=== PATIENT | male | born 1985 | race African-American/Black ===

== ENCOUNTER 2018-03-01 20:32 | Emergency (ER) | payer OTHER ==
[2018-03-01 20:50] VITALS: BP 157/92; PULSE 83; RESP 20; TEMP 98.3
--- NOTE | 2018-03-02 00:14 | ED ---
General Adult HPI - General Source: patient Mode of arrival: ambulatory Limitations: no limitations <Niyah Wilde - Last Filed: 03/02/18 00:09> <Charla Mayers - Last Filed: 03/02/18 04:10> - General Chief complaint: Drug Screen Stated complaint: Drug test, [facility] Time Seen by Provider: 03/01/18 21:01 - History of Present Illness Initial comments: 32-year-old male denies past medical history presents today for chief complaint of the urine drug screen and blood alcohol testing. Patient states is at work when he accidentally slowly backed into a wall in his hi-lo. She denies fall or injury to head or any extremity. Patient denies loss of consciousness. Patient denies any symptoms this time. He states he was sent here by his work for urine drug testing and blood alcohol testing. SILVANO 0.155. She does work was notified, patient was not allowed to drive given a call level. Work was contacted who sent a cab for transportation. Case discussed with Dr. Mayers. At this time feel patient is stable for discharge he is not to return to work or operate machinery. Patient verbalized understanding. Patient was discharged in stable condition. Patient denies any recent fever, chills, shortness of breath, chest pain, back pain, abdominal pain, nausea or vomiting, numbness or tingling, dysuria or hematuria, constipation or diarrhea, headaches or visual changes, or any other complaints. (Niyah Wilde) - Related Data Home Medications Medication Instructions Recorded Confirmed No Known Home Medications 03/01/18 03/01/18 Allergies Allergy/AdvReac Type Severity Reaction Status Date / Time No Known Allergies Allergy Verified 03/01/18 20:50 Review of Systems ROS Other: All systems not noted in ROS Statement are negative. Constitutional: Denies: fever, chills, night sweats ENT: Denies: ear pain, throat pain Respiratory: Denies: cough, dyspnea, wheezes, hemoptysis, stridor Cardiovascular: Denies: chest pain, palpitations Endocrine: Denies: fatigue Gastrointestinal: Denies: abdominal pain, nausea, vomiting, diarrhea, constipation Genitourinary: Denies: urgency, dysuria Skin: Denies: rash, lesions Neurological: Denies: headache, weakness, numbness, paresthesias, confusion <Niyah Wilde - Last Filed: 03/02/18 00:09> ROS Other: All systems not noted in ROS Statement are negative. <Adiel Mayerssscharlene Chan - Last Filed: 03/02/18 04:10> ROS Statement: Those systems with pertinent positive or pertinent negative responses have been documented in the HPI. Past Medical History Past Medical History: No Reported History History of Any Multi-Drug Resistant Organisms: None Reported Past Surgical History: No Surgical Hx Reported Past Psychological History: No Psychological Hx Reported Smoking Status: Current every day smoker Past Alcohol Use History: Occasional Past Drug Use History: None Reported <Niyah Wilde - Last Filed: 03/02/18 00:09> General Exam Limitations: no limitations <Niyah Wilde Meeta - Last Filed: 03/02/18 00:09> <Charla Mayers P - Last Filed: 03/02/18 04:10> - General Exam Comments Initial Comments: General: The patient is awake and alert, in no distress, and does not appear acutely ill. Eye: Pupils are equal, round and reactive to light, extra-ocular movements are intact. No nystagmus. There is normal conjunctiva bilaterally. No signs of icterus. Ears, nose, mouth and throat: There are moist mucous membranes and no oral lesions. Neck: The neck is supple, there is no tenderness or JVD. No midline or paravertebral tenderness along the entire length of the spinal column including cervical spine. Cardiovascular: There is a regular rate and rhythm. No murmur, rub or gallop is appreciated. Respiratory: Lungs are clear to auscultation, respirations are non-labored, breath sounds are equal. No wheezes, stridor, rales, or rhonchi. Musculoskeletal: Normal ROM, no tenderness. Strength 5/5. Sensation intact. Pulses equal bilaterally 2+. Neurological: A&O x 3. CN II-XII intact, There are no obvious motor or sensory deficits. Coordination appears grossly intact. Speech is normal. Skin: Skin is warm and dry and no rashes or lesions are noted. Psychiatric: Cooperative, appropriate mood & affect, normal judgment. (ChaniShannonNiyah L) Vital Signs 03/01/18 20:47 Temperature 98.3 F Pulse Rate 83 Respiratory 20 Rate Blood Pressure 157/92 O2 Sat by Pulse 99 Oximetry Medical Decision Making <Niyah Wilde - Last Filed: 03/02/18 00:09> <Charla Mayers - Last Filed: 03/02/18 04:10> - Medical Decision Making Patient with positive blood on occult testing. Patient was transported via cab sent by work. Patient was instructed not to operate machinery or continue working. Patient verbalizes understanding. Patient was discharged in stable condition (Niyah Wilde) I was available for consultation in the emergency department. The history and physical exam were done by the midlevel provider. I was consulted for this patient's care. I reviewed the case with the midlevel provider and based on their presentation of the patient, I agree with the assessment, medical decision making and plan of care as documented. (Charla Mayers) Disposition Is patient prescribed a controlled substance at d/c from ED?: No Time of Disposition: 00:14 <Niyah Wilde - Last Filed: 03/02/18 00:09> <Charla Mayers - Last Filed: 03/02/18 04:10> Clinical Impression: Encounter for blood-alcohol and blood-drug test Disposition: HOME SELF-CARE Condition: Stable Referrals: None,Stated [Primary Care Provider] - 1-2 days
== END 2018-03-01 22:46 | disposition home or self-care (01) ==
LOC: EC 20:32
DX: Z02.83 Encounter for blood-alcohol and blood-drug test (principal); F17.200 Nicotine dependence, unspecified, uncomplicated
CPT/HCPCS: 82075; 99281